=== PATIENT | male | born 1975 | race Hispanic/Latino ===

== ENCOUNTER 2021-10-03 09:19 | Emergency (ER) | payer SELFPAY ==
[2021-10-03 10:05] LABS: Absolute Lymphocytes (CBC) 2.4 K/uL (0.7-4.9); Hematocrit 44.5 % (39.6-49.0); Lymphocytes % 33.2 % (15.3-44.8); MPV 8.2 fL (7.6-11.3); Protime INR 1.12; RBC Red Blood Cell Count 5.31 M/uL (4.33-5.43)
[2021-10-03 10:17] LABS: Bilirubin Direct 0.3 mg/dL (0-0.2); Bilirubin Total 1.4 mg/dL (0.2-1.0); Potassium 3.6 mmol/L (3.5-5.1); Troponin High Sensitivity 6.4 pg/mL (<58.9)
--- NOTE | 2021-10-03 10:17 | RAD REPORT ---
EXAM DESCRIPTION: RAD - Chest Single View - 10/03/2021 10:08 am CLINICAL HISTORY: CHEST PAIN COMPARISON: No comparisons FINDINGS: Lines: None. Lungs: No evidence of edema or pneumonia. Pleural: No significant pleural effusions or pneumothorax. Cardiac: The heart size is within normal limits. Bones: No acute fractures. Other: IMPRESSION: No acute cardiopulmonary disease.
[2021-10-03] MEDS ORDERED: LORAZEPAM 0.5 MG TABLET ONE (10:33)
--- NOTE | 2021-10-03 11:47 | EDPHYS ---
Physician Documentation [facility] Name: Edmond Harrison Age: 46 yrs Sex: Male : 1975 Arrival Date: 10/03/2021 Time: 09:21 Bed 17 Private MD: ED Physician Bandar Ann HPI: 10/03 09:46 This 46 yrs old Male presents to ER via EMS with complaints of Chest pain. pm1 09:46 The patient or guardian reports chest pain that is located primarily in the mid-sternal pm1 area. Onset: this morning. The pain does not radiate. Associated signs and symptoms: Pertinent negatives: abdominal pain, cough, diaphoresis, dizziness, headache, nausea, palpitations, shortness of breath, vomiting. The chest pain is described as aching. Duration: The patient or guardian reports a single episode, that is still ongoing, but improving. Modifying factors: the symptoms are aggravated by emotionally stressful situations, Patient's mother on Thursday in [place] and he is not able to go to the . Patient was already feeling grief from his mother's , bills to pay for the , and then he was accused at work by his boss fro doing something that he denies. Severity of pain: in the emergency department the pain has improved. The patient has not experienced similar symptoms in the past. The patient has not recently seen a physician. Historical: - Allergies: 09:33 No Known Allergies; eo2 - Home Meds: 09:33 None [Active]; eo2 - PMHx: 09:33 sciatic nerve pain; eo2 - PSHx: 09:36 leg surgery; eo2 - Immunization history:: Client reports receiving the 2nd dose of the Covid vaccine. - Social history:: Smoking status: Patient denies any tobacco usage or history of. ROS: 09:46 Constitutional: Negative for fever, chills, and weight loss. pm1 09:46 Respiratory: Negative for shortness of breath, cough, wheezing, and pleuritic chest pain, Abdomen/GI: Negative for abdominal pain, nausea, vomiting, diarrhea, and constipation, Back: Negative for injury and pain, MS/Extremity: Negative for injury and deformity, Skin: Negative for injury, rash, and discoloration, Neuro: Negative for headache, weakness, numbness, tingling, and seizure. 09:46 Cardiovascular: Positive for chest pain, Negative for edema, palpitations. 09:46 Psych: Positive for grief over of mother. 09:46 All other systems are negative. Exam: 09:46 Constitutional: This is a well developed, well nourished patient who is awake, alert, pm1 and in no acute distress. Head/Face: Normocephalic, atraumatic. 09:46 Back: No spinal tenderness. No costovertebral tenderness. Full range of motion. Skin: Warm, dry with normal turgor. Normal color with no rashes, no lesions, and no evidence of cellulitis. MS/ Extremity: Pulses equal, no cyanosis. Neurovascular intact. Full, normal range of motion. 09:46 Cardiovascular: Exam negative for acute changes, Rate: normal, Rhythm: regular, Pulses: no pulse deficits are appreciated, Heart sounds: normal, Edema: is not appreciated. 09:46 Respiratory: Exam negative for acute changes, respiratory distress, shortness of breath, Breath sounds: are clear throughout. 09:46 Neuro: Exam negative for acute changes, Orientation: is normal, Mentation: is normal, Motor: is normal, moves all fours. 09:46 Psych: Behavior/mood is depressed, Affect is flat, Oriented to person, place, time, Patient has no thoughts/intents to harm self or others. Vital Signs: 09:24 BP 148 / 93; Pulse 72; Resp 20; Temp 97.4(O); Pulse Ox 99% on R/A; ic1 09:36 Weight 111.13 kg; Height 5 ft. 10 in. (177.80 cm); Pain 5/10; eo2 10:00 BP 136 / 88; Pulse 70; Resp 15; Pulse Ox 97% ; Pain 5/10; eo2 12:43 BP 141 / 79; Pulse 76; Resp 16; Pulse Ox 98% on R/A; eo2 09:36 Body Mass Index 35.15 (111.13 kg, 177.80 cm) eo2 MDM: 09:37 Patient medically screened. pm1 09:52 Differential diagnosis: acute myocardial infarction, unstable angina, Grief, takotsubo pm1 cardiomyopathy. 10:52 Data reviewed: vital signs. pm1 10/03 09:38 Order name: Basic Metabolic Panel; Complete Time: 10:18 pm1 10/03 09:38 Order name: CBC with Diff; Complete Time: 10:09 pm1 10/03 09:38 Order name: LFT's; Complete Time: 10:18 pm1 10/03 09:38 Order name: Magnesium; Complete Time: 10:18 pm10/03 09:38 Order name: NT PRO-BNP; Complete Time: 10:18 pm1 10/03 09:38 Order name: PT-INR; Complete Time: 10:09 pm10/03 09:38 Order name: Troponin HS; Complete Time: 10:18 pm1 10/03 09:38 Order name: XRAY Chest (1 view); Complete Time: 10:18 pm1 10/03 09:38 Order name: EKG; Complete Time: 09:38 pm1 10/03 09:38 Order name: Cardiac monitoring; Complete Time: 09:51 pm1 10/03 09:38 Order name: EKG - Nurse/Tech; Complete Time: 09:51 pm10/03 09:38 Order name: IV Saline Lock; Complete Time: 09:51 pm10/03 09:38 Order name: Labs collected and sent; Complete Time: 09:51 pm10/03 09:38 Order name: O2 Per Protocol; Complete Time: 09:51 pm10/03 09:38 Order name: O2 Sat Monitoring; Complete Time: 09:51 pm1 Administered Medications: 10:35 Drug: Ativan (LORazepam) 0.5 mg Route: PO; eo2 12:00 Follow up: Response: No adverse reaction; Anxiety decreased eo2 Disposition Summary: 10/03/21 11:46 Discharge Ordered Location: Home pm1 Condition: Stable pm1 Problem: new pm1 Symptoms: have improved pm1 Diagnosis - Acute stress reaction - grief pm1 - Chest pain, unspecified pm1 Followup: pm1 - With: Emergency Department - When: As needed - Reason: Worsening of condition Followup: pm1 - With: Private Physician - When: 2 - 3 days - Reason: Recheck today's complaints, Continuance of care, Re-evaluation by your physician Discharge Instructions: - Discharge Summary Sheet pm1 - Nonspecific Chest Pain, Adult pm1 Forms: - Medication Reconciliation Form pm1 - Thank You Letter pm1 - Antibiotic Education pm1 - Prescription Opioid Use pm1 Addendum: 10/04/2021 23:59 Co-signature as Attending Physician, Bandar Ann MD I agree with the assessment and k dr plan of care. Signatures: Dispatcher [employer] EDBandar Schwartz MD MD kdr Marinas, Patrick, [employer] pm1 Lisa Jesus, RN RN eo2
--- NOTE | 2021-10-03 11:47 | ER ---
Nurse's Notes [facility] Name: Edmond Harrison Age: 46 yrs Sex: Male : 1975 Arrival Date: 10/03/2021 Time: 09:21 Bed 17 Private MD: Diagnosis: Acute stress reaction-grief;Chest pain, unspecified Presentation: 10/03 09:29 Chief complaint: Patient states: CP while at work, non-radiating. Pt reports his mom eo2 in [place] on Thursday, stated he didn't work for the past two days, returned to work today and was being blamed for things that happened when he wasn't at work EMS states: CP: pt from [facility], reported CP onset while at work, [id number] given, 20gL.AC, ecg NSR. Coronavirus screen: Vaccine status: Patient reports receiving the 2nd dose of the covid vaccine. with booster. Ebola Screen: Patient negative for fever greater than or equal to 101.5 degrees Fahrenheit, and additional compatible Ebola Virus Disease symptoms Patient denies exposure to infectious person. Patient denies travel to an Ebola-affected area in the 21 days before illness onset. Initial Sepsis Screen: Does the patient meet any 2 criteria? No. Patient's initial sepsis screen is negative. Does the patient have a suspected source of infection? No. Patient's initial sepsis screen is negative. Risk Assessment: Do you want to hurt yourself or someone else? Patient reports no desire to harm self or others. Onset of symptoms is unknown. 09:29 Method Of Arrival: EMS: [facility] eo2 09:29 Acuity: HARDIK 2 eo2 Triage Assessment: 09:33 General: Appears comfortable, Behavior is crying. Pain: Complains of pain in chest. eo2 Neuro: Level of Consciousness is awake, alert, obeys commands, Oriented to person, place, time, Denies dizziness, headache. Cardiovascular: Reports chest pain, Heart tones S1 S2 Capillary refill < 3 seconds Parent/caregiver reports patient has had shortness of breath. Respiratory: Airway is patent Trachea midline Respiratory effort is even, unlabored, Respiratory pattern is regular, symmetrical, Breath sounds are clear bilaterally. Denies shortness of breath. GI: No deficits noted. No signs and/or symptoms were reported involving the gastrointestinal system. Historical: - Allergies: 09:33 No Known Allergies; eo2 - Home Meds: 09:33 None [Active]; eo2 - PMHx: 09:33 sciatic nerve pain; eo2 - PSHx: 09:36 leg surgery; eo2 - Immunization history:: Client reports receiving the 2nd dose of the Covid vaccine. - Social history:: Smoking status: Patient denies any tobacco usage or history of. Screenin:36 Abuse screen: Denies threats or abuse. Denies injuries from another. Nutritional eo2 screening: No deficits noted. Tuberculosis screening: No symptoms or risk factors identified. Fall Risk None identified. Assessment: 09:35 Reassessment: see triage note. eo2 Vital Signs: 09:24 BP 148 / 93; Pulse 72; Resp 20; Temp 97.4(O); Pulse Ox 99% on R/A; ic1 09:36 Weight 111.13 kg; Height 5 ft. 10 in. (177.80 cm); Pain 5/10; eo2 10:00 BP 136 / 88; Pulse 70; Resp 15; Pulse Ox 97% ; Pain 5/10; eo2 12:43 BP 141 / 79; Pulse 76; Resp 16; Pulse Ox 98% on R/A; eo2 09:36 Body Mass Index 35.15 (111.13 kg, 177.80 cm) eo2 ED Course: 09:21 Patient arrived in ED. ic1 09:28 Lisa Jesus, NICKY is Primary Nurse. eo2 09:30 Javier Woodson NP is PHCP. pm1 09:30 Bandar Ann MD is Attending Physician. pm1 09:33 Triage completed. eo2 09:33 Arm band placed on. eo2 09:36 Patient has correct armband on for positive identification. traffic monitor specialist on. Pulse eo2 ox on. NIBP on. Door closed. Noise minimized. 09:36 No provider procedures requiring assistance completed. Inserted saline lock: 20 gauge eo2 in left antecubital area, using aseptic technique. ,using aseptic technique. by EMS IGNITER CAPPER. 09:49 XRAY Chest (1 view) In Process Unspecified. EDMS 09:51 Basic Metabolic Panel Sent. mh5 09:51 CBC with Diff Sent. mh5 09:51 LFT's Sent. mh5 09:51 Magnesium Sent. mh5 09:52 NT PRO-BNP Sent. 09:52 PT-INR Sent. 09:52 Troponin HS Sent. [facility] 09:53 Initial lab(s) drawn, by me, sent to lab. EKG done, by ED staff, reviewed by Javier Woodson CERT OCCUPATIONAL THERAPY ASST. Maintain EMS IV. Dressing intact. Site clean \T\ dry. 12:44 IV discontinued, intact, bleeding controlled, No redness/swelling at site. Pressure eo2 dressing applied. Administered Medications: 10:35 Drug: Ativan (LORazepam) 0.5 mg Route: PO; eo2 12:00 Follow up: Response: No adverse reaction; Anxiety decreased eo2 Outcome: 11:46 Discharge ordered by MD. pm1 12:44 Discharged to home ambulatory. eo2 12:44 Condition: good 12:44 Discharge instructions given to patient, Instructed on discharge instructions, follow up and referral plans. Demonstrated understanding of instructions, follow-up care. 12:44 Patient left the ED. eo2 Signatures: Dispatcher [employer] EDMS Javier Woodson NP [employer] OCCUPATIONAL THER[employer]Y ASST pm1 Giuliana Ortiz Eunice, RN RN eo2 Maricarmen Rivas RN RN ic1
[2021-10-03 13:14] VITALS: TEMP 97.4
[2021-10-03 13:17] VITALS: BP 141/79; O2SAT 98
--- NOTE | 2021-10-04 13:08 | EKG ---
Test Date: 2021-10-03 Test Time: 09:41:12 Filler Leaf Cutter Long: RENNY MEASUREMENT RESULTS: Intervals: Rate: 69 SC: 132 QRSD: 102 QT: 402 QTc: 430 [place]: P: 31 SC: 132 QRS: -37 T: 19 INTERPRETIVE STATEMENTS: Normal sinus rhythm Left axis deviation Abnormal ECG No previous ECG available for comparison Electronically Signed On 10-04-21 13:03:20 [employer] by Robert Lewis
== END 2021-10-03 12:44 | disposition home or self-care (01) ==
LOC: EDSEX 09:19 → ER 09:19
DX: F43.0 Acute stress reaction (principal)
CPT/HCPCS: 36415; 71045; 80048; 80076; 83735; 83880; 84484; 85025; 85610; 93005; 99285